=== PATIENT | female | born 1980 | race Caucasian/White ===

== ENCOUNTER 2017-03-01 21:29 | Inpatient (IN) ==
[2017-03-01] MEDS ORDERED: *HR* LORazepam 1 MG TABLET PO PRN (21:37)
[2017-03-01] MEDS ORDERED: hydrOXYzine pamoate 25 MG CAPSULE PO PRN (21:37)
[2017-03-01] MEDS ORDERED: MOM Conc 10 ML UD.LIQ PO PRN (21:37)
[2017-03-01] MEDS ORDERED: traZODone 50 MG TABLET PO PRN (21:37)
[2017-03-01] MEDS ORDERED: Haloperidol Lactate 5 MG/ML VIAL IM PRN (21:37)
[2017-03-01] MEDS ORDERED: *HR* LORazepam 2 MG/ML VIAL IM PRN (21:37)
[2017-03-01] MEDS ORDERED: Mag Hydrox/Al Hydrox/Simeth 30 ML UDC PO PRN (21:37)
[2017-03-01] MEDS ORDERED: Acetaminophen 325 MG TABLET PO PRN (21:37)
[2017-03-01] MEDS: SUBOXONE SL SCH (22:23)
[2017-03-01] MEDS: levETIRAcetam 250 MG TABLET PO SCH (23:00)
[2017-03-02] MEDS: levETIRAcetam 250 MG TABLET PO SCH ×2 (09:40→21:46)
[2017-03-02] MEDS: DULERA IH SCH (09:42)
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
[2017-03-02] MEDS: SUBOXONE SL SCH (10:08)
[2017-03-02] MEDS: SUBOXONE PO SCH (21:46)
[2017-03-03] MEDS: levETIRAcetam 250 MG TABLET PO SCH ×3 (10:19→22:48)
[2017-03-03] MEDS: DULERA IH SCH ×2 (10:19→14:58)
--- NOTE | 2017-03-03 10:36 | Psychiatry Progress Note ---
Date of Encounter: 03/03/17 (refused to be seen) Time of Encounter: 10:31 (refused to be seen) Subjective Interval history: Refused to speak to this leader writer. Also refusing any 1:1 time with staff. Irritable and demanding. Refused morning medications. Initially refused some of her evening meds as well but later wanted to take them. Dismissive of any attempts to engage her. Isolating to room. Looks depressed. Not eating well ( less than 20% according to staff). Claims she only wants housing and to follow up with [facility]. Not currently prescribed anything for depression but unwilling to consider options. Reports Keppra helps some. Denied suicidal ideation, plan, or intent to other staff but refused all communication with this leader writer. This leader writer observed her interact on the unit. Kept her interactions to a minimum. Review of Systems Constitutional: Denies: fever, chills, weakness, weight change Eyes: Denies: eye pain, vision change Ears, Nose, Throat: Denies: ear pain, throat pain, dental pain, hearing loss, congestion Cardiovascular: Denies: chest pain, palpitations, dyspnea on exertion Respiratory: Denies: cough, dyspnea, wheezes Gastrointestinal: Denies: abdominal pain, nausea, vomiting, diarrhea, constipation Musculoskeletal: Denies: joint swelling, joint pain Neurological: Denies: headache, weakness, numbness, memory loss Objective: Exam Patient orientation: Yes Person, Yes Time, Yes Place Level of alertness: Alert Patient appearance: Appropriate Behavior: uncooperative Psychomotor activity: Normal Eye contact: Minimal Contact Mood description: Angry, Depressed Affect description: congruent with mood Speech pattern: Normal rate Speech volume: Normal Thought process: Linear Thought content: No Suicidal ideation, No Homicidal ideation, No Overt delusions Perceptual disturbances: No Auditory hallucinations, No Visual hallucinations Judgment: Poor Insight: Minimal Results - Vital Signs Vital Signs: Temp Pulse Resp BP 97.6 F 63 16 112/71 03/03/17 09:00 03/03/17 09:00 03/03/17 09:00 03/03/17 09:00 Assessment and Plan (1) Suicidal ideation Current visit: Yes Status: Acute Plan: Continue hospitalization, Close observation, Suicide Precautions per unit protocol, Encourage participation in unit milieu, Group Therapy, Monitor sleep, Monitor appetite, Secure weapons Risks, benefits, side effects, alternatives discussed w/pt: Yes Patient agreeable to treatment: Yes Consult Discharge Plan - Plan Referrals: NO,PCP [Primary Care Provider] -
[2017-03-03] MEDS: SUBOXONE PO SCH (22:49)
[2017-03-04] MEDS: DULERA IH SCH (09:52)
[2017-03-04] MEDS: levETIRAcetam 250 MG TABLET PO SCH ×2 (09:53→22:42)
--- NOTE | 2017-03-04 16:13 | Psychiatry Progress Note ---
Date of Encounter: 03/04/17 Time of Encounter: 15:30 Subjective Interval history: Patient seen for follow-up. Notes and medication were reviewed. Staff report she is compliant with medication seclusive to her room most of the time. She was guarded but cooperative. She is not interested in making any change to her medications. She told me that she was tried on antidepressants in the past and did not help. Currently she denies suicidal ideation. Denies any problem with sleep. Objective: Exam Patient orientation: Yes Person, Yes Time, Yes Place Level of alertness: Alert Patient appearance: Appropriate, Well Groomed Behavior: calm, cooperative, guarded Psychomotor activity: Slowed Eye contact: Minimal Contact Mood description: Euthymic/stable, Anxious Affect description: congruent with mood, constricted Speech pattern: Normal rate, Normal rhythm, Normal tone, Limited Speech volume: Normal Thought process: Linear, Goal Oriented Thought content: No Suicidal ideation, No Homicidal ideation, No Overt delusions Perceptual disturbances: No Auditory hallucinations, No Visual hallucinations Judgment: Fair Insight: Partial Results - Vital Signs Vital Signs: Temp Pulse Resp BP 97.6 F 51 14 99/58 03/04/17 09:00 03/04/17 09:00 03/04/17 09:00 03/04/17 09:00 Assessment and Plan (1) Suicidal ideation Current visit: Yes Status: Acute Plan: Continue hospitalization, Close observation, Suicide Precautions per unit protocol, Encourage participation in unit milieu, Group Therapy, Monitor sleep, Monitor appetite Risks, benefits, side effects, alternatives discussed w/pt: Yes Patient agreeable to treatment: Yes Consult Discharge Plan - Plan Referrals: [facility] [place] [Outside] - 03/13/17 8:00 am (The above appointment is with Neena Parra, psychiatric prescriber. A case management specialist will be assigned to you and follow-up appointment made after you see Neena.)
[2017-03-04] MEDS: SUBOXONE PO SCH (22:42)
[2017-03-05] MEDS: levETIRAcetam 250 MG TABLET PO SCH ×2 (09:21→21:23)
[2017-03-05] MEDS: DULERA IH SCH (09:22)
--- NOTE | 2017-03-05 14:19 | Psychiatry Progress Note ---
Date of Encounter: 03/05/17 Time of Encounter: 14:00 Subjective Interval history: Patient is seen for follow-up. Staff reports she is self isolating in her room and refused to participate in groups or activities and she is guarded on contact with staff. She denied any suicidal ideation and reports her sleep is better. Her discharge plans are ongoing by the social welfare administrator, she is homeless. Objective: Exam Patient orientation: Yes Person, Yes Time, Yes Place Level of alertness: Alert Patient appearance: Appropriate, Well Groomed Behavior: calm, cooperative, guarded Psychomotor activity: Normal Eye contact: Minimal Contact Mood description: Euthymic/stable Affect description: congruent with mood, constricted Speech pattern: Normal rate, Normal rhythm, Normal tone Speech volume: Normal Thought process: Linear, Goal Oriented Thought content: No Suicidal ideation, No Homicidal ideation, No Overt delusions Perceptual disturbances: No Auditory hallucinations, No Visual hallucinations Judgment: Fair Insight: Partial Results - Vital Signs Vital Signs: Temp Pulse Resp BP 97.8 F 70 12 111/73 03/05/17 09:00 03/05/17 09:00 03/05/17 09:00 03/05/17 09:00 Assessment and Plan (1) Suicidal ideation Current visit: Yes Status: Acute Plan: Continue hospitalization, Close observation, Suicide Precautions per unit protocol, Encourage participation in unit milieu, Group Therapy, Monitor sleep, Monitor appetite Risks, benefits, side effects, alternatives discussed w/pt: Yes Patient agreeable to treatment: No (She declined any antidepressants, history of side effects) Consult Discharge Plan - Plan Referrals: [facility] [place] [Outside] - 03/13/17 8:00 am (The above appointment is with Neena Parra, psychiatric prescriber. A director of casework services will be assigned to you and follow-up appointment made after you see Neena.)
[2017-03-05] MEDS: SUBOXONE PO SCH (21:23)
[2017-03-06] MEDS: levETIRAcetam 250 MG TABLET PO SCH ×2 (08:17→20:53)
[2017-03-06] MEDS: DULERA IH SCH (08:17)
--- NOTE | 2017-03-06 15:47 | Psychiatry Progress Note ---
Date of Encounter: 03/06/17 Time of Encounter: 15:20 Subjective Interval history: Patient is seen for follow-up. She reported social media strategist that she experience nightmares every night that disturb her sleep. She was reluctant to accept new medication, today after discussing possible trial of prazosin she was agreeable to try it. Her discharge plans are being completed by the social media strategist and she denied any suicidal ideation. Objective: Exam Patient orientation: Yes Person, Yes Time, Yes Place Level of alertness: Alert Patient appearance: Appropriate, Well Groomed Behavior: calm, cooperative, guarded Psychomotor activity: Normal Eye contact: Maintains Eye Contact Mood description: Euthymic/stable Affect description: congruent with mood, full range Speech pattern: Normal rate, Normal rhythm, Normal tone Speech volume: Normal Thought process: Linear, Goal Oriented Thought content: No Suicidal ideation, No Homicidal ideation, No Overt delusions Perceptual disturbances: No Auditory hallucinations, No Visual hallucinations Judgment: Fair Insight: Partial Results - Vital Signs Vital Signs: Temp Pulse Resp BP 97.4 F L 68 16 97/72 03/06/17 08:51 03/06/17 08:51 03/06/17 08:51 03/06/17 08:51 Assessment and Plan (1) Suicidal ideation Current visit: Yes Status: Acute Plan: Continue hospitalization, Close observation, Suicide Precautions per unit protocol, Encourage participation in unit milieu, Group Therapy, Monitor sleep, Monitor appetite Additional Plan: Start prazosin 1 mg at bedtime. Benefits and side effects were discussed with the patient she is agreeable to try. Risks, benefits, side effects, alternatives discussed w/pt: Yes Patient agreeable to treatment: No (She declined any antidepressants, history of side effects) Consult Discharge Plan - Plan Referrals: [facility] [place] [Outside] - 03/13/17 8:00 am (The above appointment is with Neena Parra, psychiatric prescriber. A case picker will be assigned to you and follow-up appointment made after you see Neena.)
[2017-03-06] MEDS: SUBOXONE PO SCH (20:52)
[2017-03-07 09:01] VITALS: BP 115/68
[2017-03-07] MEDS: levETIRAcetam 250 MG TABLET PO SCH (09:11)
[2017-03-07] MEDS: DULERA IH SCH (09:12)
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
== END 2017-03-07 13:02 | disposition home or self-care (01) | DRG 755 ==
LOC: 1ANU 21:29 → SUATTDRO 21:29
PROVIDERS: ADMIT Psychiatry & Neurology Psychiatry; ATTEND Psychiatry & Neurology Psychiatry